=== PATIENT | male | born 1945 | race African-American/Black ===

== ENCOUNTER 2017-05-19 06:03 | Emergency (ER) | payer OTHER ==
[~2017-05-19] VITALS: Ht 175.3 cm; Wt 100.0 kg
[~2017-05-19 06:03] MED LIST: ASPI81TA82 PO; DICL50TA3 PO; HYDR-2768 PO; KLOR20TA6 PO; METH750T2 PO; METO50TA PO; PRAV20TA67 PO
[2017-05-19 06:04] VITALS: BP 173/85; PULSE 78; RESP 16; TEMP 97.8; O2SAT 96
[2017-05-19] MEDS ORDERED: TRAM50TA PO (07:10)
--- NOTE | 2017-05-19 07:14 | PD ---
HPI Chief Complaint: Pain: Acute or Chronic Time Seen by Provider: 07:05 Travel History International Travel<30 days: No Contact w/Intl Traveler<30days: No Traveled to known affect area: No History of Present Illness HPI This patient complains of pain from his arthritis. He's had several months of pain from what he describes as an inflammatory arthritis. It primarily affects the joints of both hands but also includes shoulders and knees. Takes anti- inflammatory for but was having difficulty sleeping last night so that's why he came to the ER, primarily for some pain relief. Denies fever or injury. Symptoms severity is moderate. PFSH Past Medical History Cardiovascular Problems: Yes (HTN) High Cholesterol: Yes Diabetes: No GERD: Yes Herniated Disk: Yes Hypertension: Yes Musculoskeletal: Yes Tetanus Vaccination: Unknown Influenza Vaccination: No Past Surgical History Surgical History: No Previous Surgery Social History Alcohol Use: No Tobacco Use: No (QUIT 1994) Substance Use: No Allergies-Medications (Allergen,Severity, Reaction): Coded Allergies: No Known Allergies (Unverified , 05/19/17) Reported Meds & Prescriptions Reported Meds & Active Scripts Active Robaxin (Methocarbamol) 750 Mg Tab 750 Mg PO TID PRN Diclofenac Sodium 50 Mg Tab 50 Mg PO TID PRN Reported K-Dur (Potassium Chloride) 20 Meq Tabcr 20 Meq PO DAILY Aspir-81 (Aspirin) 81 Mg Tab 81 Mg PO DAILY Metoprolol Tartrate 50 mg (Metoprolol Tartrate) 50 Mg Tab 50 Mg PO DAILY Pravachol (Pravastatin Sodium) 20 Mg Tab 20 Mg PO HS Hctz (Hydrochlorothiazide) 25 Mg Tab 25 Mg PO DAILY Review of Systems General / Constitutional: No: Fever HENT: No: Headaches Cardiovascular: No: Chest Pain or Discomfort Respiratory: No: Cough Physical Exam Narrative CARDIOVASCULAR: Regular rate and rhythm without murmur. Extremities showed no edema or varicosities. SKIN: Focused skin assessment reveals no rash or ulcers. Skin is warm and dry. Palpation shows no induration or nodules. Psych: Normal mood and affect. Normal insight and judgment. Musculoskeletal: I don't see objective signs of serious inflammation in the joints. No erythema or warmth noted Data Data Last Documented VS Vital Signs Date Time Temp Pulse Resp B/P Pulse Ox O2 Delivery O2 Flow Rate FiO2 05/19/17 06:04 97.8 78 16 173/85 96 Room Air MDM Medical Decision Making Medical Screen Exam Complete: Yes Emergency Medical Condition: Yes Medical Record Reviewed: Yes Differential Diagnosis Arthritis, fibromyalgia, rheumatoid, gout Narrative Course I have reviewed the patient's electronic medical record. I wrote the patient some tramadol to supplement his anti-inflammatories. He should discuss this primary physician. Diagnosis Primary Impression: Inflammatory arthritis Additional Impression: Arthralgia of both hands Additional Instructions: The patient was advised to follow up with their physician and return if they worsen. The patient was warned about potential sedation for the medications they will receive on prescription. Med/Other Pt SpecificInfo: Prescription(s) given Scripts Tramadol 50 Mg Tab50 Mg PO Q6H PRN (PAIN) #20 TAB Ref 0 Prov:Patric Rodriguez MD 05/19/17 Disposition: 01 DISCHARGE HOME Condition: Stable Patric Rodriguez MD May 19, 2017 07:13
== END 2017-05-19 07:26 | disposition home or self-care (01) ==
LOC: NEPC 06:03
DX: M06.4 Inflammatory polyarthropathy (principal)
CPT/HCPCS: 99283